=== PATIENT | male | born 1990 ===

== ENCOUNTER 2020-04-19 10:35 | Outpatient (REF) | payer OTHER, SELFPAY | END 2020-04-19 10:36 | disposition home or self-care (01) | LOC: HO.LAB 10:35 | PROVIDERS: Visit Provider Internal Medicine | DX: Z20.828 Contact with and (suspected) exposure to other viral communicable diseases (principal) | CPT/HCPCS: C9803; U0003 ==

== ENCOUNTER 2020-09-13 15:18 | Outpatient (REF) | payer OTHER, SELFPAY | END 2020-09-13 15:19 | disposition home or self-care (01) | LOC: HO.LAB 15:18 | PROVIDERS: Visit Provider Internal Medicine | DX: Z20.822 Contact with and (suspected) exposure to COVID-19 (principal) | CPT/HCPCS: C9803; U0003; U0005 ==

== ENCOUNTER 2020-10-01 08:20 | Outpatient (REF) | payer OTHER, SELFPAY ==
[2020-10-01 08:40] LABS: COVID-19 Test Negative (Negative)
== END 2020-10-01 08:21 | disposition home or self-care (01) ==
LOC: HO.LAB 08:20
PROVIDERS: Visit Provider Internal Medicine
DX: Z20.822 Contact with and (suspected) exposure to COVID-19 (principal)
CPT/HCPCS: 36415; 87635; C9803

== ENCOUNTER 2020-11-09 13:01 | Outpatient (REF) | payer OTHER, SELFPAY | END 2020-11-09 13:02 | disposition home or self-care (01) | LOC: HO.LAB 13:01 | PROVIDERS: Visit Provider Internal Medicine | DX: Z20.822 Contact with and (suspected) exposure to COVID-19 (principal) | CPT/HCPCS: C9803; U0003; U0005 ==

== ENCOUNTER 2021-05-05 18:36 | Emergency (ER) | payer OTHER, SELFPAY ==
[2021-05-05 22:05] VITALS: BP 116/89; PULSE 95; RESP 20; TEMP 36.8; O2SAT 98; BMI 25.8
[2021-05-05 22:37] LABS: COVID-19 Test Positive (Negative)
--- NOTE | 2021-05-06 01:27 | ED_ITS ---
HPI - General Adult General Chief complaint: General Medical Stated complaint: Flu like Time Seen by Provider: 05/06/21 01:26 Source: patient Mode of arrival: ambulatory Limitations: no limitations History of Present Illness HPI narrative: 31-year-old male is not vaccinated for COVID presents for 3 days of body aches, nausea, dry cough, dyspnea on exertion, chills. No fevers today, patient had a fever yesterday. He has had diarrhea. No vomiting, no abdominal pain. Related Data Previous Rx's Medication Instructions Recorded ondansetron 4 mg disintegrating 4 mg PO Q8H #9 tab 05/06/21 tablet Allergies Allergy/AdvReac Type Severity Reaction Status Date / Time No Known Allergies Allergy Unverified 02/02/20 18:44 Review of Systems Constitutional: Constitutional: Reports body ache(s), Reports chills, Reports fatigue, Reports fever(s), Reports headache(s), Reports malaise and Denies weakness Eyes: Eyes: Denies diplopia ENT: Denies vertigo, Denies dizziness, Reports otalgia, Reports headache(s), Denies mouth pain, Denies post nasal drip, Denies sinus pain, Denies sinus pressure, Denies sore throat and Denies throat swelling Cardiovascular: Cardiovascular: Denies chest pain, Denies syncope, Denies leg edema, Denies lightheadedness, Denies Loss of Consciousness, Denies palpitations and Denies dyspnea Respiratory: Respiratory: Denies chest congestion, Reports cough and Denies dyspnea Gastrointestinal: Gastrointestinal: Denies abdominal pain, Denies hematochezia, Denies constipation, Reports diarrhea, Reports nausea and Denies vomiting Musculoskeletal: Musculoskeletal: Reports no additional musculoskeletal complaints Neurologic: Denies confusion, Denies vertigo, Denies dizziness, Denies syncope, Reports headache(s) and Denies weakness Psychiatric: Psychiatric: Denies anxiety, Denies confusion and Denies dep ression Endocrine: Endocrine: Reports fatigue and Denies palpitations Allergic/Immunologic: Allergic/Immunologic: Denies throat swelling [facility] Social History Social History Advance Directives: No Advance Directives Information Provided: Yes Physical Exam Vital Signs: Vital Signs: Last Vital Signs Temp 98.3 F 05/05/21 22:05 Pulse 95 05/05/21 22:05 Resp 20 05/05/21 22:05 BP 116/89 05/05/21 22:05 Pulse Ox 98 05/05/21 22:05 BMI result Body Mass Index 25.8 Const: General: No confusion Nutritional Appearance: well nourished Orientation/consciousness: No confusion Limitations: no limitations HENMT: Head: Yes normal to inspection, Yes normocephalic and Yes atraumatic Ears: hearing grossly normal bilaterally, external ears normal, TM's normal bilaterally and EAC's normal General nose exam: Normal external nose present Face and sinus: Yes normal facial exam and Yes sinuses nontender Mouth: Normal oral and palatal mucosa present and mucous membranes dry Throat: Yes posterior oropharynx abnormal (erythematous) Eyes: Conjunctivae: conjunctivae normal Pupils: Equal, round and reactive pupils present EOM: EOMs intact bilaterally Neck: Neck: Yes full ROM, Yes no lymphadenopathy and Yes supple Resp: Effort & Inspection: normal respiratory effort and able to speak in complete sentences Auscultation: no crackles, no rales, rhonchi right lower and no wheezes Cardio: Rate: regular rate Rhythm: regular rhythm Heart sounds: S1 normal heart sound present and S2 normal heart sound present GI: Inspection: Yes normal to inspection Palpation (GI): Soft to palpation, nontender, no guarding and not rigid Percussion: Yes normal to percussion Auscultation: normal bowel sounds Skin: General skin exam: no rashes or lesions noted Neuro: General: No confusion Cranial nerves: Yes Equal, round and reactive pupils present Extrem: General: Yes normal to inspection and Yes full ROM Psych: Appearance: grossly normal Affect: normal affect Attitude: cooperative Thought process: Normal thought process present Course Course Course Narrative: 31-year-old male who has tested positive for COVID-19 today, with 3 days of symptoms including fever, dry cough, body ache, nausea, diarrhea. On exam, patient is mildly ill appearing, has mild rhonchi left lower lobe, dry mucous membranes, erythematous posterior oropharynx. Gave albuterol inhaler, Zofran, counseled patient to eat use both in the course of his illness, counseled patient to drink plenty of fluids, quarantine at home, quarantine for 10 days, and to take ibuprofen as needed Counseled patient he could buy a pulse oximeter, and have his oxygen saturation dipped below 90%, he could return to be seen, or that he needs rate turn to be seen if he has shortness of breath or worsening symptoms. All questions answered to patient's satisfaction Medical Decision Making Lab Data Labs: Lab Results 05/05/21 Range/Units 22:14 COVID-19 (PHONG) Positive A (Negative) COVID-19 Clin Com See Note Discharge Plan Discharge Clinical Impression: COVID-19 Patient Disposition: Home, Self-Care Instructions: COVID-19 (Coronavirus Disease 2019) (ED) Additional Instructions: You have tested positive for COVID today. He may not return to work for 10 days. You are contagious, please quarantine at home. Please stay away from your family, taking males in a room and use room bathroom, where mask in the house, wash her hands. You may buy a pulse oximeter, if your oxygen saturation drops below 90%, please return to be seen. If you are short of breath please return to the scene. Please use your albuterol inhaler, 2 puffs every 4 hours for the next week while you are awake. Please use the ondansetron 1 pill every 8 hours for nausea. Your mildly dehydrated right now, please drink plenty of fluids, drink 3 L of water a day. Please take ibuprofen for your fever and body aches. Prescriptions: New ondansetron 4 mg tablet,disintegrating 4 mg PO Q8H Qty: 9 RF: 0 Stand Alone Forms: Work/School Release
[2021-05-06] MEDS: Albuterol Sulfate 90 MCG 8 GM INHALER 2 PUFF INHALE (02:01)
== END 2021-05-06 03:33 | disposition home or self-care (01) ==
PROVIDERS: Emergency Provider Emergency Medicine
DX: U07.1 COVID-19 (principal); R06.02 Shortness of breath
CPT/HCPCS: 36415; 87635; 99283; 99284

== ENCOUNTER 2021-10-16 19:13 | Emergency (ER) | payer SELFPAY ==
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
[2021-10-16 19:48] VITALS: BP 115/63; PULSE 75; RESP 18; TEMP 37; O2SAT 96; BMI 27.3
[2021-10-16 20:52] VITALS: BP 124/73; PULSE 76; RESP 20; TEMP 36.7; O2SAT 95
[2021-10-16] MEDS: Ketorolac Tromethamine 60 MG/2 ML VIAL IM (21:05)
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
== END 2021-10-16 22:47 | disposition home or self-care (01) ==
PROVIDERS: Emergency Provider Emergency Medicine
DX: S39.012A Strain of muscle, fascia and tendon of lower back, initial encounter (principal); V89.2XXA Person injured in unspecified motor-vehicle accident, traffic, initial encounter; Y93.9 Activity, unspecified; Y92.410 Unspecified street and highway as the place of occurrence of the external cause; Y99.9 Unspecified external cause status
CPT/HCPCS: 72100; 96372; 99283; 99284; J1885

== ENCOUNTER 2023-07-19 18:05 | Emergency (ER) | payer SELFPAY ==
--- NOTE | ~2023-07-19 | XR_ITS ---
EXAMINATION: XR CHEST CLINICAL INFORMATION: Shortness of breath COMPARISON: 10/17/19 TECHNIQUE: Frontal portable view of the chest was obtained. FINDINGS: Devices overlie the patient. The mediastinum, ailin, and vasculature are within normal limits. There is hypoinflation. No dense focal pneumonia. No pleural fluid or pneumothorax. Area of sclerosis superimposes over the right humeral head unchanged. This does not require any specific follow-up XR/XR chest 1V IMPRESSION: Hypoinflation. No focal pneumonia.
--- NOTE | ~2023-07-19 | CT_ITS ---
CT HEAD WITHOUT IV CONTRAST CT CERVICAL SPINE WITHOUT IV CONTRAST INDICATION: Pain. COMPARISON: None available. TECHNIQUE: Multidetector CT acquisitions of the head and cervical spine were obtained without IV contrast. Multiplanar reformats were acquired and utilized for image interpretation. This CT examination was performed using dose optimization techniques as appropriate, variously including the following: *Automated exposure control *Adjustment of mA and/or kV according to patient size (this includes techniques or standardized protocols for targeted exams where dose is matched to indication/reason for exam; i.e. extremities or head) *Use of iterative reconstruction technique FINDINGS: HEAD: There is no intracranial hemorrhage, hydrocephalus, extra-axial surface collection, midline shift, or other herniation pattern. [place] to white matter differentiation is diffusely maintained without evidence of an evolved acute territorial infarct. The basilar cisterns are preserved. No significant soft tissue abnormality. No acute osseous abnormality. There is moderate mucosal thickening within the left maxillary sinus. There is a defect involving the cartilaginous nasal septum and there is nonspecific soft tissue along the periphery of the left nasal cavity that can be correlated with direct visual inspection. CERVICAL SPINE: Cervical alignment is normal. The vertebral body heights are maintained. The disc volumes are preserved. There are no acute fractures and there are no acute subluxations. Craniocervical junction is unremarkable. No significant soft tissue abnormality within the neck. The visualized lung apices are clear. CT/CT cervical spine wo IV con IMPRESSION: - No acute intracranial abnormality. - No acute osseous abnormality within the cervical spine. - There is moderate mucosal thickening within the left maxillary sinus. There is a defect involving the cartilaginous nasal septum and there is nonspecific soft tissue along the periphery of the left nasal cavity that can be correlated with direct visual inspection to exclude an underlying infectious/inflammatory process.
--- NOTE | 2023-07-19 18:15 | ECG_ITS ---
Test Reason : CHEST PAIN Blood Pressure : / mmHG Vent. Rate : 090 BPM Atrial Rate : 090 BPM P-R Int : 146 ms QRS Dur : 084 ms QT Int : 390 ms P-R-T Axes : 046 046 018 degrees QTc Int : 477 ms Normal sinus rhythm Normal ECG When compared with ECG of 17-OCT-2019 13:36, Nonspecific T wave abnormality now evident in Lateral leads QT has lengthened Referred By: Generic ED Physician Electronically Signed By:Fernando Omalley
[2023-07-19 18:16] VITALS: BP 138/87; PULSE 87; O2SAT 99
[2023-07-19 18:24] VITALS: BP 130/94; PULSE 92; RESP 14; TEMP 36.3; O2SAT 97; BMI 28.2
[2023-07-19 18:48] LABS: MANUAL DIFF FLAG NO
[2023-07-19 18:49] LABS: Basophils Percent Auto 0.3 % (0-2); Eosinophils Absolute Auto 0.2 X10*3/uL (0.0-0.4); Eosinophils Percent Auto 2.1 % (0-4); Hematocrit 43.2 % (42.0-52.0); Hemoglobin 14.4 g/dl (14.0-18.0); Imm Gran Abs Auto 0.03 X10*3/uL (0.00-0.03); Imm Gran Pct Auto 0.3 % (0.0-0.4); Lymphocytes Absolute Auto 3.2 X10*3/uL (1.2-4.9); Lymphocytes Percent Auto 28.8 % (20-40); Mean Corpuscular HGB Conc 33.3 g/dl (31.0-36.0); Mean Corpuscular Hemoglobin 28.9 pg (27.0-33.0); Mean Corpuscular Volume 86.6 fL (80.0-98.0); Monocytes Absolute Auto 0.9 X10*3/uL (0.1-1.2); Monocytes Percent Auto 8.2 % (2-11); Neutrophils Absolute Auto 6.6 x10*3/uL (2.0-8.3); Neutrophils Percent Auto 60.3 % (45-73); Platelet Count 425 X10*3/uL (160-400); Red Blood Count 4.99 X10*6/uL (4.60-5.80); Red Cell Distribution Width 13.9 % (11.0-16.0)
[2023-07-19 18:54] LABS: INTERNATIONAL NORM RATIO 1.1 (0.9-1.1); Prothrombin Time 12.9 SEC (11.1-13.3)
[2023-07-19 19:05] LABS: D Dimer High Sensitivity < 150 NG/ML
--- NOTE | 2023-07-19 19:14 | ED.CHESTPAIN ---
HPI - Chest Pain General Chief Complaint: Chest Pain Stated Complaint: SYNCOPAL EPISODE FOLLOWED WITH CHEST PAIN Time Seen by Provider: 07/19/23 18:30 Source: patient, RN notes reviewed and old records reviewed Mode of arrival: EMS Limitations: no limitations History of Present Illness HPI narrative: 33-year-old male presents for evaluation a syncopal episode. Patient was complaining of chest pain then a syncopal episode by girlfriend Per EMS the patient was in a panic complaining of chest pain. The patient admits to using cocaine today He denies any medical issues He endorses drinking alcohol last night Endorses a dry mouth and states that he was having trouble breathing No other complaints or concerns at time The patient arrives via EMS in his C-collar Related Data Previous Rx's Medication Instructions Recorded ondansetron 4 mg disintegrating 4 mg PO Q8H #9 tabs 05/06/21 tablet cyclobenzaprine 10 mg tablet 10 mg PO TID PRN muscle spasm #14 10/16/21 tabs ibuprofen 800 mg tablet 800 mg PO Q6H PRN pain #20 tabs 10/16/21 amoxicillin 875 mg-potassium 1 tab PO Q12H 10 days #20 tabs 07/19/23 clavulanate 125 mg tablet Allergies Allergy/AdvReac Type Severity Reaction Status Date / Time No Known Allergies Allergy Unverified 02/02/20 18:44 Review of Systems Constitutional: Constitutional: Denies body ache(s), Denies fatigue, Denies fever(s) and Denies headache(s) Eyes: Eyes: Denies blurry vision ENT: Denies headache(s) Cardiovascular: Cardiovascular: Reports chest pain, Reports syncope and Reports dyspnea Respiratory: Respiratory: Denies cough and Reports dyspnea Gastrointestinal: Gastrointestinal: Denies abdominal pain, Denies nausea and Denies vomiting Musculoskeletal: Musculoskeletal: Denies back pain Integumentary/Breasts: Skin/Breast: Denies rash Neurologic: Reports syncope and Denies headache(s) Endocrine: Endocrine: Denies fatigue [facility] Social History Social History Alcohol intake: current Smoked in Last 30 Days: Yes Substance Use Type: Crack/Cocaine Substance Use Frequency: Occasionally Advance Directives: No Advance Directives Information Provided: No Physical Exam Vital Signs: Vital Signs: Last Vital Signs Temp 98 F 07/19/23 20:00 Pulse 90 07/19/23 19:57 Resp 19 07/19/23 19:57 BP 114/83 07/19/23 19:57 Pulse Ox 98 07/19/23 19:57 O2 Del Method Room Air 07/19/23 19:57 BMI result Body Mass Index 28.2 Const: General: healthy appearing, comfortable, no acute distress, alert and awake Nutritional Appearance: well nourished Orientation/consciousness: patient oriented x3 HEENT: Head: Yes normocephalic and Yes atraumatic Eyes: Eyelids: Yes eyelids normal Conjunctivae: conjunctivae normal Sclerae: sclerae normal Corneas: corneas normal Pupils: Equal, round and reactive pupils present EOM: EOMs intact bilaterally Resp: Effort & Inspection: normal respiratory effort, able to speak in complete sentences, no audible wheezes and not labored Auscultation: clear to auscultation bilaterally Cardio: Rate: regular rate Rhythm: regular rhythm GI: Inspection: No distended Palpation (GI): Soft to palpation, not firm, nontender, no guarding and not rigid Back/Spine/Pelvis: Cervical Spine: collar present and Cervical spine tenderness Skin: General skin exam: elasticity normal Neuro: General: patient oriented x3 Cranial nerves: Yes CN's II-XII intact bilaterally, Yes Equal, round and reactive pupils present and Yes Bilaterally intact EOM present Cognition (Neuro): normal cognition Course Reevaluation(s) Reevaluation #1: Initial troponin undetectable, patient's CT imaging shows no traumatic injuries. He had a negative D-dimer which makes PE less likely. Plan to repeat troponin as the patient did use cocaine high syncopal episode chest pain. However I feel that his symptoms were most likely related to anxiety Reevaluation #2: Patient's 2nd troponin negative. Head CT shows sinusitis. Patient will be discharged with Augmentin. Patient informed to follow-up with primary care provider. Patient explained worrisome signs. 10:30pm Medications Administered Discontinued Medications Generic Name Dose Route Start Last Admin Trade Name Freq PRN Reason Stop Dose Admin Potassium Chloride 40 meq 07/19/23 19:39 07/19/23 19:58 Potassium Chloride Er 20 Meq Tab.Er.Prt PO 07/19/23 19:40 40 meq ONCE ONE Administration Medical Decision Making Medical Decision Making MDM Narrative: 33-year-old male presents for evaluation of a syncopal episode as well as chest pain. He arrives in a C-collar. Plan for CT imaging of the brain and C-spine given a syncopal episode and fall. Will also get a chest x-ray, EKG, lab for cardiac workup. Clinically, is likely the patient had a panic attack leading to a syncopal episode. Although he also endorses cocaine abuse drug screen was ordered. Given the chest pain started shortly prior to arrival he will likely require a 3 hour, delta troponin level Differential Diagnosis Differential Diagnoses: The differential diagnosis associated with the presentation includes Syncope Chest pain PE less likely Substance abuse Anxiety Admission/Observation Consideration of admission/observation: Escalation of care including admission/observation considered Patient complaining of chest pain and syncope, he ruled out for ACS as well as P Lab Data [facility] Lab Attestation statement: I reviewed the patient's lab results. Mild leukocytosis to 11.0 K. no significant anemia, patient's sodium is normal at 140 with a slightly low potassium of 3.1. This was repleted orally 07/19/23 18:42 07/19/23 18:42 Labs: Lab Results 07/19/23 07/19/23 07/19/23 Range/Units 18:42 20:02 21:26 WBC 11.0 H (4.8-10.8) X10*3/uL RBC 4.99 (4.60-5.80) X10*6/uL Hgb 14.4 (14.0-18.0) g/dl Hct 43.2 (42.0-52.0) % MCV 86.6 (80.0-98.0) fL MCH 28.9 (27.0-33.0) pg MCHC 33.3 (31.0-36.0) g/dl RDW 13.9 (11.0-16.0) % Plt Count 425 H (160-400) X10*3/uL MPV 10.0 (9.4-12.4) fL Immature Gran % (Auto) 0.3 (0.0-0.4) % Neut % (Auto) 60.3 (45-73) % Lymph % (Auto) 28.8 (20-40) % [place] % (Auto) 8.2 (2-11) % Eos % (Auto) 2.1 (0-4) % Baso % (Auto) 0.3 (0-2) % Lymph # (Auto) 3.2 (1.2-4.9) X10*3/uL [place] # (Auto) 0.9 (0.1-1.2) X10*3/uL Eos # (Auto) 0.2 (0.0-0.4) X10*3/uL Baso # (Auto) 0.0 (0.0-0.2) X10*3/uL Abs Immat Gran (auto) 0.03 (0.00-0.03) X10*3/uL Absolute Neuts (auto) 6.6 (2.0-8.3) x10*3/uL Absolute Nucleated RBC 0.000 (0.0-0.012) X10*3/uL Nucleated RBC % (auto) 0.0 (0.0-0.2) /100WBC PT 12.9 (11.1-13.3) SEC INR 1.1 (0.9-1.1) D-Dimer High Sensitivty < 150 NG/ML Sodium 140 (135-145) mmol/L Potassium 3.1 L (3.3-5.1) mmol/L Chloride 104 (96-108) mmol/L Carbon Dioxide 26 (22-29) mmol/L Anion Gap 13 (12-20) BUN 3 L (9-16) mg/dL Creatinine 0.70 (0.5-1.4) mg/dL Estim Creat Clear Calc 152.0 Estimated GFR > 60 Random Glucose 110 (60-115) mg/dL Calcium 9.7 (8.4-10.2) mg/dL Total Bilirubin 0.9 (0.0-1.0) mg/dL AST 15 (5-37) U/L ALT 18 (0-40) U/L Alkaline Phosphatase 102 (39-117) U/L Troponin I High Sens < 2.7 < 2.7 (<3.5-35.0) ng/L Total Protein 7.7 (6.5-8.0) g/dL Albumin 4.2 (3.5-5.0) g/dL Urine Opiates Screen Not Detected (Not Detect) Urine Fentanyl Screen Not Detected (Not Detect) Ur Barbiturates Screen Not Detected (Not Detect) Ur Phencyclidine Scrn Not Detected (Not Detect) Ur Amphetamines Screen Not Detected (Not Detect) U Benzodiazepines Scrn Not Detected (Not Detect) Urine Cocaine Screen POSITIVE H (Not Detect) U Marijuana (THC) Screen POSITIVE H (Not Detect) Ethyl Alcohol < 10 mg/dL Independent Interpretation I performed an independent interpretation of an: EKG (Sinus rhythm rate 90 beats per minute. No ST segment elevation AR) and Plain X-Ray (No pneumothorax or pneumonia) Radiology Impression Discussion of test interpretation with radiology: I have reviewed the radiologist's reading. (No evidence of cervical spine fracture or intracranial hemorrhage) Discharge Plan Discharge Clinical Impression: Chest pain, Syncope, Acute hypokalemia, Sinusitis Patient Disposition: Home, Self-Care Instructions: Chest Pain (ED), Sinusitis (ED), Syncope (ED) Additional Instructions: Your workup in the ER today was positive. Your imaging did not show any evidence of traumatic injuries Your blood work was reassuring except that your potassium was slightly low today You should have these labs rechecked within 2 weeks Avoid recreational drug use Follow-up with your primary doctor Prescriptions: New amoxicillin-pot clavulanate 875-125 mg tablet 1 tab PO Q12H 10 Days Qty: 20 0RF No Action cyclobenzaprine 10 mg tablet 10 mg PO TID PRN (Reason: muscle spasm) Qty: 14 0RF ibuprofen 800 mg tablet 800 mg PO Q6H PRN (Reason: pain) Qty: 20 0RF ondansetron 4 mg tablet,disintegrating 4 mg PO Q8H Qty: 9 0RF Stand Alone Forms: Work/School Release Interventions: ED Discharge Assessment Last Done: 07/19/23 22:57 Discharge Date/Time: 07/19/23 22:57 Print Language: Marshallese
[2023-07-19 19:17] LABS: Alanine Aminotransferase 18 U/L (0-40); Albumin Level 4.2 g/dL (3.5-5.0); Alkaline Phosphatase 102 U/L (39-117); Anion Gap 13 (12-20); Aspartate Amino Transferase 15 U/L (5-37); Bilirubin Total 0.9 mg/dL (0.0-1.0); Blood Urea Nitrogen 3 mg/dL (9-16); Calcium 9.7 mg/dL (8.4-10.2); Carbon Dioxide 26 mmol/L (22-29); Chloride 104 mmol/L (96-108); Estimated Glomerular Filt Rate > 60; Glucose Random 110 mg/dL (60-115); Potassium 3.1 mmol/L (3.3-5.1); Sodium 140 mmol/L (135-145); Total Protein 7.7 g/dL (6.5-8.0)
[2023-07-19 19:29] LABS: Troponin-I High Sensitivity < 2.7 ng/L (<3.5-35.0)
[2023-07-19 19:57] VITALS: BP 114/83; PULSE 90; RESP 19; O2SAT 98
[2023-07-19] MEDS: Potassium Chloride ER 20 MEQ TAB.ER.PRT 40 MEQ PO (19:58)
[2023-07-19 20:00] VITALS: PULSE 90; TEMP 36.6
[2023-07-19 20:17] LABS: Amphetamine Screen Urine Not Detected (Not Detect); Barbiturates, Urine Not Detected (Not Detect); Benzodiazepines Screen Urine Not Detected (Not Detect); Cannabinoid Screen Urine POSITIVE (Not Detect); Cocaine Screen Urine POSITIVE (Not Detect); Fentanyl, urine Not Detected (Not Detect); Opiate Screen Urine Not Detected (Not Detect); Phencyclidine Screen Urine Not Detected (Not Detect)
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
[2023-07-19 21:47] LABS: Ethanol < 10 mg/dL
[2023-07-19 21:57] LABS: Troponin-I High Sensitivity < 2.7 ng/L (<3.5-35.0)
== END 2023-07-19 22:57 | disposition home or self-care (01) ==
PROVIDERS: Physician Assistant; Emergency Provider Internal Medicine
DX: R07.89 Other chest pain (principal); J32.9 Chronic sinusitis, unspecified; R55 Syncope and collapse; E87.6 Hypokalemia; M54.2 Cervicalgia; R51.9 Headache, unspecified; F41.0 Panic disorder [episodic paroxysmal anxiety]; Z79.899 Other long term (current) drug therapy
CPT/HCPCS: 36415; 70450; 71045; 72125; 80053; 80307; 84484; 85025; 85379; 85610; 93005; 99284; 99285

== ENCOUNTER → 2023-07-19 18:15 | Outpatient (BNV) | payer SELFPAY | PROVIDERS: Emergency Provider Internal Medicine; Visit Provider Internal Medicine Cardiovascular Disease | DX: R07.9 Chest pain, unspecified (principal) | CPT/HCPCS: 93010 ==

== ENCOUNTER 2023-09-10 13:10 | Emergency (ER) | payer SELFPAY ==
--- NOTE | 2023-09-10 | ECG_ITS ---
Test Reason : CHEST PAIN Blood Pressure : / mmHG Vent. Rate : 106 BPM Atrial Rate : 106 BPM P-R Int : 134 ms QRS Dur : 082 ms QT Int : 368 ms P-R-T Axes : 032 041 017 degrees QTc Int : 488 ms Sinus tachycardia Otherwise normal ECG When compared with ECG of 19-JUL-2023 18:19, No significant change was found Referred By: Generic ED Physician Electronically Signed By:MISA LORD MD
--- NOTE | ~2023-09-10 | XR_ITS ---
EXAMINATION: XR CHEST CLINICAL INFORMATION: Chest pain COMPARISON: Chest x-ray July 19, 2023 TECHNIQUE: 2 views of the chest were obtained. FINDINGS: Lung volume low. Linear atelectasis at lung bases. There is no focal airspace disease/consolidation. No pleural effusion or pneumothorax. Heart size is normal. Cardiac and mediastinal contours are normal. No acute osseous abnormality. XR/XR chest 2V IMPRESSION: Low lung volume. Linear atelectasis at lung bases.
--- NOTE | 2023-09-10 13:32 | ED_ITS ---
HPI - General Adult General Chief complaint: Chest Pain Stated complaint: Chest pain Related Data Previous Rx's ?Medication ?Instructions ?Recorded ondansetron 4 mg disintegrating 4 mg PO Q8H #9 tabs 05/06/21 tablet cyclobenzaprine 10 mg tablet 10 mg PO TID PRN muscle spasm #14 10/16/21 tabs ibuprofen 800 mg tablet 800 mg PO Q6H PRN pain #20 tabs 10/16/21 amoxicillin 875 mg-potassium 1 tab PO Q12H 10 days #20 tabs 07/19/23 clavulanate 125 mg tablet Allergies Allergy/AdvReac Type Severity Reaction Status Date / Time No Known Allergies Allergy Verified 09/10/23 13:34 [facility] Social History Social History Alcohol intake: current Substance Use Type: Crack/Cocaine Advance Directives: No Advance Directives Information Provided: No Do you have a plan to hurt others: No Plan Physical Exam ED Vital Signs: BMI result Body Mass Index 28.9 Course Course Course Narrative: This is a rapid medical exam: Additional HPI, ROS, PE not included below will be deferred to primary provider. Patient is a 33-year-old male presenting to the emergency department with complaint of intermittent chest pain for the past 3 days as well as hands and feet sweating. States last time he felt this way he was hypokalemic. Plan: EKG, labs, CXR, viral swabs Medical Decision Making Lab Data 09/10/23 13:52 09/10/23 13:52 Labs: Lab Results 09/10/23 Range/Units 13:52 WBC 10.7 (4.8-10.8) X10*3/uL RBC 4.96 (4.60-5.80) X10*6/uL Hgb 14.4 (14.0-18.0) g/dl Hct 44.2 (42.0-52.0) % MCV 89.1 (80.0-98.0) fL MCH 29.0 (27.0-33.0) pg MCHC 32.6 (31.0-36.0) g/dl RDW 13.8 (11.0-16.0) % Plt Count 457 H (160-400) X10*3/uL MPV 10.2 (9.4-12.4) fL Immature Gran % (Auto) 0.4 (0.0-0.4) % Neut % (Auto) 64.5 (45-73) % Lymph % (Auto) 24.6 (20-40) % Tompkins % (Auto) 8.8 (2-11) % Eos % (Auto) 1.4 (0-4) % Baso % (Auto) 0.3 (0-2) % Lymph # (Auto) 2.6 (1.2-4.9) X10*3/uL Tompkins # (Auto) 0.9 (0.1-1.2) X10*3/uL Eos # (Auto) 0.2 (0.0-0.4) X10*3/uL Baso # (Auto) 0.0 (0.0-0.2) X10*3/uL Abs Immat Gran (auto) 0.04 H (0.00-0.03) X10*3/uL Absolute Neuts (auto) 6.9 (2.0-8.3) x10*3/uL Absolute Nucleated RBC 0.000 (0.0-0.012) X10*3/uL Nucleated RBC % (auto) 0.0 (0.0-0.2) /100WBC Sodium 139 (135-145) mmol/L Potassium 4.1 D (3.3-5.1) mmol/L Chloride 103 (96-108) mmol/L Carbon Dioxide 30 H (22-29) mmol/L Anion Gap 10 L (12-20) BUN 4 L (9-16) mg/dL Creatinine 0.70 (0.5-1.4) mg/dL Estim Creat Clear Calc 148.8 Estimated GFR > 60 Random Glucose 102 (60-115) mg/dL Calcium 9.8 (8.4-10.2) mg/dL Total Bilirubin 0.8 (0.0-1.0) mg/dL AST 16 (5-37) U/L ALT 23 (0-40) U/L Alkaline Phosphatase 108 (39-117) U/L Troponin I High Sens < 2.7 (<3.5-35.0) ng/L Total Protein 8.3 H (6.5-8.0) g/dL Albumin 4.5 (3.5-5.0) g/dL Influenza Type A (PCR) NEGATIVE (Negative) Influenza Type B (PCR) NEGATIVE (Negative) RSV RNA Qual (PCR) NEGATIVE (Negative) SARS-CoV-2 RNA (RT-PCR) NEGATIVE (Negative) Discharge Plan Discharge Clinical Impression: Chest pain Patient Disposition: Left W/O Completing Treatment Prescriptions: No Action cyclobenzaprine 10 mg tablet 10 mg PO TID PRN (Reason: muscle spasm) Qty: 14 0RF ibuprofen 800 mg tablet 800 mg PO Q6H PRN (Reason: pain) Qty: 20 0RF ondansetron 4 mg tablet,disintegrating 4 mg PO Q8H Qty: 9 0RF amoxicillin-pot clavulanate 875-125 mg tablet 1 tab PO Q12H 10 Days Qty: 20 0RF Discharge Date/Time: 09/10/23 20:43
[2023-09-10 13:33] VITALS: BP 138/89; PULSE 97; RESP 18; TEMP 36.7; O2SAT 97; BMI 28.9
[2023-09-10 13:58] LABS: MANUAL DIFF FLAG NO
[2023-09-10 14:15] LABS: Basophils Percent Auto 0.3 % (0-2); Eosinophils Absolute Auto 0.2 X10*3/uL (0.0-0.4); Eosinophils Percent Auto 1.4 % (0-4); Hematocrit 44.2 % (42.0-52.0); Hemoglobin 14.4 g/dl (14.0-18.0); Imm Gran Abs Auto 0.04 X10*3/uL (0.00-0.03); Imm Gran Pct Auto 0.4 % (0.0-0.4); Lymphocytes Absolute Auto 2.6 X10*3/uL (1.2-4.9); Lymphocytes Percent Auto 24.6 % (20-40); Mean Corpuscular HGB Conc 32.6 g/dl (31.0-36.0); Mean Corpuscular Volume 89.1 fL (80.0-98.0); Mean Platelet Volume 10.2 fL (9.4-12.4); Monocytes Absolute Auto 0.9 X10*3/uL (0.1-1.2); Monocytes Percent Auto 8.8 % (2-11); Neutrophils Absolute Auto 6.9 x10*3/uL (2.0-8.3); Neutrophils Percent Auto 64.5 % (45-73); Platelet Count 457 X10*3/uL (160-400); Red Blood Count 4.96 X10*6/uL (4.60-5.80); Red Cell Distribution Width 13.8 % (11.0-16.0); White Blood Count 10.7 X10*3/uL (4.8-10.8)
[2023-09-10 14:19] LABS: Alanine Aminotransferase 23 U/L (0-40); Albumin Level 4.5 g/dL (3.5-5.0); Alkaline Phosphatase 108 U/L (39-117); Anion Gap 10 (12-20); Aspartate Amino Transferase 16 U/L (5-37); Bilirubin Total 0.8 mg/dL (0.0-1.0); Blood Urea Nitrogen 4 mg/dL (9-16); Calcium 9.8 mg/dL (8.4-10.2); Carbon Dioxide 30 mmol/L (22-29); Chloride 103 mmol/L (96-108); Creatinine Clr Calc Pharmacy 148.8; Estimated Glomerular Filt Rate > 60; Glucose Random 102 mg/dL (60-115); Potassium 4.1 mmol/L (3.3-5.1); Sodium 139 mmol/L (135-145); Total Protein 8.3 g/dL (6.5-8.0)
[2023-09-10 14:25] LABS: Troponin-I High Sensitivity < 2.7 ng/L (<3.5-35.0)
[2023-09-10 14:39] LABS: Influenza A PCR NEGATIVE (Negative); Influenza B PCR NEGATIVE (Negative); Resp Syncy Virus RNA Qual PCR NEGATIVE (Negative); SARS COV2 PCR INHOUSE NEGATIVE (Negative)
== END 2023-09-10 20:43 | disposition left against medical advice (07) ==
LOC: HO.ED 20:39
PROVIDERS: Registered Nurse Emergency; Emergency Provider Emergency Medicine
DX: R07.89 Other chest pain (principal); F14.90 Cocaine use, unspecified, uncomplicated; Z03.818 Encounter for observation for suspected exposure to other biological agents ruled out; Z79.899 Other long term (current) drug therapy
CPT/HCPCS: 0241U; 71046; 80053; 84484; 85025; 93005; 99283

== ENCOUNTER → 2023-09-10 13:12 | Outpatient (BNV) | payer SELFPAY | PROVIDERS: Visit Provider Internal Medicine Cardiovascular Disease | DX: R00.0 Tachycardia, unspecified (principal) | CPT/HCPCS: 93010 ==

== ENCOUNTER 2025-04-01 21:29 | Emergency (ER) | payer MEDICAID, SELFPAY ==
[2025-04-01 21:35] VITALS: BP 103/68; BP 128/65; PULSE 81; PULSE 88; RESP 15; TEMP 36.9; O2SAT 100; O2SAT 94; BMI 25.1
[2025-04-01 21:39] VITALS: BP 111/65; PULSE 72; RESP 14; TEMP 36.9; O2SAT 96
--- NOTE | 2025-04-01 21:46 | PC.NURSE ---
Assumed care of pt, presents with substance abuse, pt apparently bought cannabis from a friend, and according was unresponsive to family at home, pt is upon arrival pt is responsive to verbal stimuli, but is somnolent, pt was able to aaox4, answers question appropriately
--- NOTE | 2025-04-01 22:18 | ECG_ITS ---
Test Reason : SYNCOPE Blood Pressure : */* mmHG Vent. Rate : 79 BPM Atrial Rate : 79 BPM P-R Int : 142 ms QRS Dur : 88 ms QT Int : 392 ms P-R-T Axes : 56 60 45 degrees QTcB Int : 449 ms Normal sinus rhythm Normal ECG When compared with ECG of 10-Sep-2023 13:12, ST elevation now present in Inferior leads Nonspecific T wave abnormality has replaced inverted T waves in Inferior leads Referred By: Veronica Conway Electronically Signed By: MISA LORD MD
--- NOTE | 2025-04-01 22:24 | ED.GENADULT ---
HPI - General Adult General Chief complaint: ETOH/Substance Use Stated complaint: Weakness, Marijuana use Time Seen by Provider: 04/01/25 22:10 Source: patient Mode of arrival: ambulatory Limitations: no limitations History of Present Illness ED Provider: Dr. Veronica Conway HPI narrative: Patient comes to the emergency room from home. According to the patient, he has smoked marijuana . Patient states that he was sitting and started feeling lightheaded. Patient states that he was able to lower himself to the ground and believes he passed out. Patient states that he does not remember much after feeling lightheaded and blacking out, patient woke up in the emergency room. Patient denies any chest pain or shortness of breath. Patient states that he has had multiple episodes of lightheadedness in the past and near syncopal episodes. Patient denies any history of seizures. Time, patient states that he feels well and has no complaints Related Data Previous Rx's ?Medication ?Instructions ?Recorded ondansetron 4 mg disintegrating 4 mg PO Q8H #9 tabs 05/06/21 tablet cyclobenzaprine 10 mg tablet 10 mg PO TID PRN muscle spasm #14 10/16/21 tabs ibuprofen 800 mg tablet 800 mg PO Q6H PRN pain #20 tabs 10/16/21 amoxicillin 875 mg-potassium 1 tab PO Q12H 10 days #20 tabs 07/19/23 clavulanate 125 mg tablet Allergies Allergy/AdvReac Type Severity Reaction Status Date / Time No Known Allergies Allergy Verified 04/01/25 21:42 Review of Systems Review of Systems: Constitutional : No Weight loss, No Fever, No Chills, No Night Sweats, No Fatigue, No Malaise ENT/Mouth : No Hearing loss, No Ear Pain, No Nasal Congestion, No Sinus Pain, No Hoarseness, No sore throat, No Rhinorrhea, No Swallowing Difficulty Eyes: No Eye Pain, No Swelling, No Redness, No Foreign Body, No Discharge, No Vision Changes Cardiovascular : No Chest Pain, No SOB, No Dyspnea on Exertion, No Orthopnea, No Edema, No Palpitations Respiratory : No Cough, No Sputum, No Wheezing, No Smoke Exposure, No Dyspnea Gastrointestinal : No Nausea, No Vomiting, No Diarrhea, No Constipation, No abdominal Pain, No Hematochezia, No Melena Genitourinary : no irregular bleeding, No Dysuria, No Urinary Frequency, No Hematuria, No Urinary Incontinence, No Urgency, No Flank Pain, No Urinary Flow Changes, No Hesitancy Musculoskeletal : No joint pain, No Myalgias, No Joint Swelling Skin : No Skin Lesions, No rash Neuro : No Weakness, No Numbness, No Paresthesias, complaining of a syncopal episode today after using marijuana, No Dizziness, No Headache Psych : No Anxiety/Panic, No Depression, No SI/HI/AH/VH, No Social Issues, Heme/Lymph: No Bruising, No Bleeding,No Lymphadenopathy Endocrine : No Polyuria, No Polydipsia, No Temperature Intolerance [facility] Social History Social History Unable to assess alcohol history related to: Unable to respond Alcohol intake: current Use of substances other than those prescribed or required for medical reasons: Unable to respond Substance Use Type: Crack/Cocaine Advance Directives: No Advance Directives Information Provided: No Do you have a plan to hurt others: No Plan Physical Exam ED Exam Exam: Appearance: Alert. Oriented X3. No acute distress. Eyes: Pupils equal, round and reactive to light. ENT: Pharynx normal. Neck: Normal inspection. Neck supple. No lymph nodes noted. No crepitus CVS: Normal heart rate and rhythm. Pulses normal. Normal S1 and S2 Respiratory: No respiratory distress. Breath sounds normal. No Wheezing. No rales Abdomen: Soft and nontender. No rigidity. No distention. Skin: Skin warm and dry. Normal skin color. Normal skin turgor. Extremities: No lower extremity edema. No Lacerations. No Rash Neuro: Oriented X 3. No motor deficit. No sensory deficit. Moving all extremities. No slurred speech. CN 2 through 12 grossly intact Psych: calm, cooperative, normal affect Vital Signs: Vital Signs - 24 hr 04/01/25 21:35 04/01/25 21:39 04/01/25 22:41 Temperature 98.5 F 98.5 F Pulse Rate 81 72 82 Respiratory Rate 15 14 Blood Pressure 103/68 111/65 100/61 Pulse Oximetry 94 96 Oxygen Delivery Method Room Air Room Air 04/01/25 22:41 04/01/25 22:42 Temperature Pulse Rate 81 94 Respiratory Rate Blood Pressure 108/74 103/73 Pulse Oximetry Oxygen Delivery Method BMI result Body Mass Index 25.1 Course Course Course Narrative: patient reports smoking weed and then passing out. To patient's knowledge, he got it from a friend, unknown if it was laced with narcotics. Patient states that in the past he has a episodes of near-syncope for unclear reason, probably related to smoking? At this time, patient is asymptomatic all of patient's labs and imaging pending Medical Decision Making Medical Decision Making MDM Narrative: my interpretation of EKG: Normal sinus rhythm, heart rate 79, no ST segment depression or elevation, does not, nonspecific 1 mm elevations in laterally, QTC 49 my interpretation of labs: No significant abnormality patient's hematology and chemistry, D-dimer negative, troponin negative, ETOH negative Orthostatic vitals negative Wells criteria score for pulmonary embolism is 0 U tox positive for marijuana and cocaine I discussed with the patient that he needs to stop using drugs, cocaine, as it may cause arrhythmias. Differential Diagnosis Differential Diagnoses: The differential diagnosis associated with the presentation includes ( accidental overdose, arrhythmias, pulmonary embolism, vasovagal syncope, orthostatic hypotension) Admission/Observation Consideration of admission/observation: Escalation of care including admission/observation considered (Given patient's recurrent symptoms, observation has been considered) Lab Data [facility] Lab Attestation statement: I reviewed the patient's lab results. 04/01/25 22:30 04/01/25 22:30 Labs: Lab Results 04/01/25 04/01/25 Range/Units 22:30 23:32 WBC 9.4 (4.8-10.8) X10*3/uL RBC 5.01 (4.60-5.80) X10*6/uL Hgb 14.3 (14.0-18.0) g/dl Hct 43.7 (42.0-52.0) % MCV 87.2 (80.0-98.0) fL MCH 28.5 (27.0-33.0) pg MCHC 32.7 (31.0-36.0) g/dl RDW 14.4 (11.0-16.0) % Plt Count 400 (160-400) X10*3/uL MPV 10.1 (9.4-12.4) fL Immature Gran % (Auto) 0.3 (0.0-0.4) % Neut % (Auto) 55.1 (45-73) % Lymph % (Auto) 31.4 (20-40) % Shannon % (Auto) 9.4 (2-11) % Eos % (Auto) 3.2 (0-4) % Baso % (Auto) 0.6 (0-2) % Lymph # (Auto) 3.0 (1.2-4.9) X10*3/uL Shannon # (Auto) 0.9 (0.1-1.2) X10*3/uL Eos # (Auto) 0.3 (0.0-0.4) X10*3/uL Baso # (Auto) 0.1 (0.0-0.2) X10*3/uL Abs Immat Gran (auto) 0.03 (0.00-0.03) X10*3/uL Absolute Neuts (auto) 5.2 (2.0-8.3) x10*3/uL Absolute Nucleated RBC 0.000 (0.0-0.012) X10*3/uL Nucleated RBC % (auto) 0.0 (0.0-0.2) /100WBC D-Dimer High Sensitivty < 150 NG/ML Sodium 142 (135-145) mmol/L Potassium 3.8 (3.3-5.1) mmol/L Chloride 107 (96-108) mmol/L Carbon Dioxide 23 (22-29) mmol/L Anion Gap 16 (12-20) BUN 11 (9-16) mg/dL Creatinine 0.88 (0.5-1.4) mg/dL Estim Creat Clear Calc 109.5 Estimated GFR > 60 Random Glucose 93 (60-115) mg/dL Calcium 9.8 (8.4-10.2) mg/dL Total Bilirubin 0.7 (0.0-1.0) mg/dL Direct Bilirubin 0.2 (0.0-0.5) mg/dL AST 24 (5-37) U/L ALT 21 (0-40) U/L Alkaline Phosphatase 105 (39-117) U/L Troponin I High Sens < 2.7 (<3.5-35.0) ng/L Total Protein 7.5 (6.5-8.0) g/dL Albumin 4.1 (3.5-5.0) g/dL Urine Opiates Screen Not Detected (Not Detect) Ur Buprenorphine Scrn Not Detected (Not Detect) ng/mL Ur Oxycodone Screen Not Detected (Not Detect) ng/mL Urine Methadone Screen Not Detected (Not Detect) ng/mL Urine Fentanyl Screen Not Detected (Not Detect) Ur Barbiturates Screen Not Detected (Not Detect) Ur Phencyclidine Scrn Not Detected (Not Detect) Ur Amphetamines Screen Not Detected (Not Detect) U Benzodiazepines Scrn Not Detected (Not Detect) Urine Cocaine Screen POSITIVE H (Not Detect) U Marijuana (THC) Screen POSITIVE H (Not Detect) Ethyl Alcohol < 10 mg/dL Independent Interpretation I performed an independent interpretation of an: EKG Critical Care Time Critical Care Time Critical Care Time: Yes Total Critical Care Time: 35 Attestation: I have personally provided critical care time. Time includes review of lab data, radiology results, discussion with consultants, and monitoring for potential decompensation. Intervention performed as documented. Discharge Plan Discharge Clinical Impression: Syncope, Polysubstance abuse Patient Disposition: Home, Self-Care Instructions: Polysubstance Use Disorder (ED), Syncope (ED) Additional Instructions: Please follow-up with your primary care physician tomorrow. If you have any worsening or new symptoms, please return to the emergency room or call 911 Prescriptions: No Action cyclobenzaprine 10 mg tablet 10 mg PO TID PRN (Reason: muscle spasm) Qty: 14 0RF ibuprofen 800 mg tablet 800 mg PO Q6H PRN (Reason: pain) Qty: 20 0RF ondansetron 4 mg tablet,disintegrating 4 mg PO Q8H Qty: 9 0RF amoxicillin-pot clavulanate 875-125 mg tablet 1 tab PO Q12H 10 Days Qty: 20 0RF Print Language: Macedonian
[2025-04-01 22:35] LABS: MANUAL DIFF FLAG NO
[2025-04-01 22:36] LABS: Hematocrit 43.7 % (42.0-52.0); Hemoglobin 14.3 g/dl (14.0-18.0); Imm Gran Abs Auto 0.03 X10*3/uL (0.00-0.03); Imm Gran Pct Auto 0.3 % (0.0-0.4); Lymphocytes Absolute Auto 3.0 X10*3/uL (1.2-4.9); Mean Corpuscular HGB Conc 32.7 g/dl (31.0-36.0); Mean Corpuscular Hemoglobin 28.5 pg (27.0-33.0); Mean Corpuscular Volume 87.2 fL (80.0-98.0); NRBC Abs Auto 0.000 X10*3/uL (0.0-0.012); NRBC Pct Auto 0.0 /100WBC (0.0-0.2); Platelet Count 400 X10*3/uL (160-400); Red Blood Count 5.01 X10*6/uL (4.60-5.80); White Blood Count 9.4 X10*3/uL (4.8-10.8)
[2025-04-01 22:41] VITALS: BP 100/61; BP 108/74; PULSE 81; PULSE 82
[2025-04-01 22:42] VITALS: BP 103/73; PULSE 94
[2025-04-01 22:44] LABS: D Dimer High Sensitivity < 150 NG/ML
[2025-04-01 22:51] LABS: Alanine Aminotransferase 21 U/L (0-40); Albumin Level 4.1 g/dL (3.5-5.0); Alkaline Phosphatase 105 U/L (39-117); Anion Gap 16 (12-20); Aspartate Amino Transferase 24 U/L (5-37); Blood Urea Nitrogen 11 mg/dL (9-16); Calcium 9.8 mg/dL (8.4-10.2); Carbon Dioxide 23 mmol/L (22-29); Chloride 107 mmol/L (96-108); Creatinine Clr Calc Pharmacy 109.5; Estimated Glomerular Filt Rate > 60; Potassium 3.8 mmol/L (3.3-5.1); Sodium 142 mmol/L (135-145); Total Protein 7.5 g/dL (6.5-8.0)
[2025-04-01 23:00] LABS: Troponin-I High Sensitivity < 2.7 ng/L (<3.5-35.0)
[2025-04-01 23:49] LABS: Cannabinoid Screen Urine POSITIVE (Not Detect)
[2025-04-02 00:59] VITALS: BP 103/75; PULSE 92; RESP 16; TEMP 36.8; O2SAT 97
== END 2025-04-02 01:03 | disposition home or self-care (01) ==
PROVIDERS: Emergency Provider Emergency Medicine
DX: R55 Syncope and collapse (principal); F19.10 Other psychoactive substance abuse, uncomplicated; R53.1 Weakness
CPT/HCPCS: 36415; 80048; 80076; 80307; 84484; 85025; 85379; 93005; 99284; 99285

== ENCOUNTER → 2025-04-01 22:18 | Outpatient (BNV) | payer SELFPAY | PROVIDERS: Emergency Provider Emergency Medicine; Visit Provider Internal Medicine Cardiovascular Disease | DX: I21.29 ST elevation (STEMI) myocardial infarction involving other sites (principal) | CPT/HCPCS: 93010 ==

== ENCOUNTER 2025-05-05 21:41 | Emergency (ER) | payer MEDICAID, SELFPAY ==
--- NOTE | 2025-05-05 | ECG_ITS ---
Test Reason : CP Blood Pressure : */* mmHG Vent. Rate : 101 BPM Atrial Rate : 101 BPM P-R Int : 138 ms QRS Dur : 82 ms QT Int : 374 ms P-R-T Axes : 54 57 41 degrees QTcB Int : 484 ms Sinus tachycardia Otherwise normal ECG When compared with ECG of 01-Apr-2025 22:33, No significant change was found Referred By: Generic ED Physician Electronically Signed By: Fernando Omalley
--- NOTE | ~2025-05-05 | US_ITS ---
CLINICAL HISTORY: intermittent L leg swelling Venous duplex ultrasound left lower extremity Comparison: None provided Findings: The visualized deep veins are fully compressible with normal Doppler color flow and spectral tracings. No popliteal cyst. IMPRESSION: 1. Negative for left lower extremity deep vein thrombosis. This document has been electronically signed by: Arnulfo Mcintosh MD on 05/06/2025 08:58:11
--- NOTE | ~2025-05-05 | CT_ITS ---
CLINICAL HISTORY: Epigastric Pain Tender; Elevated Lipase CT abdomen and pelvis with contrast Comparison: None provided Findings: There is right lower lobe consolidation, possible subsegmental atelectasis versus pneumonia. Unremarkable gallbladder and solid organs. No urolithiasis. No bowel obstruction, pneumoperitoneum, or pneumatosis. Pelvic contents unremarkable. Normal appendix. No acute fracture. IMPRESSION: Right lower lobe consolidation, differential considerations noted This document has been electronically signed by: Arnulfo Mcintosh MD on 05/06/2025 07:02:52
--- NOTE | ~2025-05-05 | XR_ITS ---
CLINICAL HISTORY: cough 2 view chest x-ray Comparison: 09/10/2023 Findings: There are no new areas of airspace or interstitial consolidation. Normal size heart. No acute fracture. IMPRESSION: 1. No acute findings. This document has been electronically signed by: Arnulfo Mcintosh MD on 05/06/2025 08:56:21
[2025-05-05 21:47] VITALS: BP 134/80; PULSE 103; RESP 16; TEMP 36.6; O2SAT 96; BMI 25.7
[2025-05-05 22:11] LABS: MANUAL DIFF FLAG NO
[2025-05-05 22:12] LABS: Hematocrit 41.5 % (42.0-52.0); Hemoglobin 13.8 g/dl (14.0-18.0); Imm Gran Abs Auto 0.03 X10*3/uL (0.00-0.03); Imm Gran Pct Auto 0.3 % (0.0-0.4); Lymphocytes Absolute Auto 2.8 X10*3/uL (1.2-4.9); Mean Corpuscular HGB Conc 33.3 g/dl (31.0-36.0); Mean Corpuscular Hemoglobin 28.6 pg (27.0-33.0); Mean Corpuscular Volume 85.9 fL (80.0-98.0); NRBC Abs Auto 0.000 X10*3/uL (0.0-0.012); NRBC Pct Auto 0.0 /100WBC (0.0-0.2); Platelet Count 401 X10*3/uL (160-400); Red Blood Count 4.83 X10*6/uL (4.60-5.80); White Blood Count 11.4 X10*3/uL (4.8-10.8)
[2025-05-05 22:26] LABS: Alanine Aminotransferase 24 U/L (0-40); Albumin Level 4.5 g/dL (3.5-5.0); Alkaline Phosphatase 109 U/L (39-117); Anion Gap 13 (12-20); Aspartate Amino Transferase 31 U/L (5-37); Blood Urea Nitrogen 5 mg/dL (9-16); Calcium 9.8 mg/dL (8.4-10.2); Carbon Dioxide 26 mmol/L (22-29); Chloride 100 mmol/L (96-108); Creatinine Clr Calc Pharmacy 136.3; Estimated Glomerular Filt Rate > 60; Lipase 191 U/L (8-78); Magnesium 2.0 mg/dL (1.6-2.6); Potassium 4.2 mmol/L (3.3-5.1); Sodium 135 mmol/L (135-145); Total Protein 7.9 g/dL (6.5-8.0)
[2025-05-05 22:49] LABS: Resp Syncy Virus RNA Qual PCR NEGATIVE (Negative); SARS COV2 PCR INHOUSE NEGATIVE (Negative)
--- OUTSIDE RECORDS SUMMARY | 2025-05-05 23:23 | XMS_ITS | Clinical Summary ---
Author Organization [facility] ity Address [address] [place] [address] Care Team Providers Care Commercial Loan Closer Name Role Phone Unavailable Primary Care Provider Unavailabl e Social History Tobacco Use Types Packs/Day Years Used Date Smoking Tobacco: Never Assessed Sex and Gender Information Value Date Recorded Sex Assigned at Not on file Legal Sex Male 11:47 AM EST Gender Identity Not on file Sexual Orientation Not on file Plan of Treatment Health Maintenance Due Date Last Done Comments DTaP,Tdap,and Td Vaccines (1 - Tdap) 2008 Hepatitis B Vaccines (1 of 3 - 19+ 3-dose series) 2008 HPV Vaccines (1 - 3-dose SCD M series) 2016 Depression Screening 05/18/2024 COVID-19 Vaccine (1 - 2024-2 6 season) 2025 Influenza Vaccine (#1) 2025 RSV Immunization Adult Patie nts (1 - 1-dose 75+ series) 2064 HIB Vaccines Aged Out No longer eligi ble based on patient's age to complete this topic Hepatitis A Vaccines Aged Out No long er eligible based on patient's age to complete this topic IPV Vaccines Aged Out No longer eligi ble based on patient's age to complete this topic MMR Vaccines Aged Out No longer eligi ble based on patient's age to complete this topic Meningococcal ACWY Vaccine Aged Out N o longer eligible based on patient's age to complete this topic Meningococcal B Vaccine Aged Out No l onger eligible based on patient's age to complete this topic Pneumococcal Vaccine: Pediat rics (0 to 5 Years) and At-Risk Patients (6 to 49 Years) Aged Out No longer eligible b ased on patient's age to complete this topic RSV Immunization Patients Un nunu 20 months Aged Out No longer eligible b ased on patient's age to complete this topic Varicella Vaccines Aged Out No longer eligible based on patient's age to complete this topic
--- OUTSIDE RECORDS SUMMARY | 2025-05-05 23:23 | XMS_ITS | Clinical Summary ---
Author Organization [employer] Address [address] [place] [address] Care Team Providers Care Student Counsellor Name Role Phone Unavailable Primary Care Provider Unavailabl e Allergies No known active allergies Medications Blood Pressure Monitoring (Blood Pressure Cuff) misc Use daily as prescribed 1 each 5 Active nicotine polacrilex (Nicorette) 4 MG gum Chew 1 each (4 mg) if needed for smoking cessation. 100 each 5 05/24/19 26 Active Active Problems Problem Noted Date Diagnosed Date Tetrahydrocannabinol (THC) u se disorder, moderate, dependence (CMS/HCC) 04/24/2025 Assessment & Plan (04/24/2025 4:02 PM EST): Advised to cut down daily use to off. Refer to power and recovery supervisor Polysubstance abuse 04/24/2025 Assessment & Plan (04/24/2025 4:03 PM EST): Drinks alcohol _ uses cocaine at the same time few times per month+ daily THC Advised to quit, agreed to referral to recovery coaches. Chronic nonintractable headache 04/24/2025 Assessment & Plan (04/24/2025 4:02 PM EST): - It seems to be migraine. - Advised to remain hydrated, avoid recreational substances as above, including alcohol as well. - Advised to use tylenol only and fu w new PCP in 2mo , may need prophylaxis. Vasovagal reaction 04/24/2025 Assessment & Plan (04/24/2025 4:00 PM EST): - Vasovagal episodes likely exacerbated by dehydration, smoking, caffeine, and substance use. No evidence of structural brain pathology or metabolic derangement based on recent normal CT scan and laboratory results. - Advised to quit nicotine, THC, cocaine. He should avoid abrupt cessation of substances to prevent withdrawal, I'll prescription nicotine patch and will refer to recovery coaches. - Recommended home blood pressure monitoring, especially before rising from bed and before sleep. - Advised to maintain adequate hydration with fluids such as water, Pedialyte, Crystal Light, Gatorade, and electrolyte drinks that are not energy drinks. - Advised to avoid dehydration, smoking, and caffeine. - Encouraged regular physical activity (walking at least 15 minutes daily). - - Scheduled follow-up w new PCP in two months. Encounters Date Type Department Care Team Description 04/25/2025 Patient Outreach [facility] [address] [place] [id number] [address] Outreach/No Answer (Called to offer recovery support. Could not LVM.) 04/24/2025 1:00 PM EST Office Visit [facility] [address] [place] [phone] Crystal Shaver MD Vasovagal reaction (Primary Dx); Chronic nonintractable headache, unspecified headache type; Tetrahydrocannabinol (THC) use disorder, moderate, dependence (CMS/HCC) ([facility]); Polysubstance abuse (HCC) 04/24/2025 Travel from Last 3 Months Social History Tobacco Use Types Packs/Day Years Used Date Smoking Tobacco: Every Day Cigarettes Passive Smoke Exposure: Past Tobacco Cessation:Ready to Q uit: Not Asked; Counseling Given: Not Answered Sex and Gender Information Value Date Recorded Sex Assigned at Male 03/17/2022 10:29 AM EDT Legal Sex Male 10:29 AM EDT Gender Identity Male 04/24/2025 11:51 AM EST Sexual Orientation Straight 04/24/2025 11 :51 AM EST Last Filed Vital Signs Vital Sign Reading Time Taken Comments Blood Pressure 120/82 04/24/2025 1:30 PM EST Pulse 86 04/24/2025 1:30 PM EST Temperature 36.7 C (98 F) 04/24/2025 1:11 PM EST Respiratory Rate 16 04/24/2025 1:11 PM EST Oxygen Saturation 98% 04/24/2025 1:11 PM EST Inhaled Oxygen Concentration - - Weight 77.1 kg (170 lb) 04/24/2025 1:11 PM EST Height 170.2 cm (5' 7 ) 04/24/2025 1:11 PM EST Body Mass Index 26.63 04/24/2025 1:11 PM EST Plan of Treatment Upcoming Encounters Date Type Department Care Team (Late st Contact Info) Description 06/13/2025 9:15 AM EST Office Visit [facility] [address] [place] [phone] Crystal Shaver MD [address] [place] [address] Health Maintenance Due Date Last Done Comments Depression Screening 1989 HIV Screening 1989 Lipid Panel 1989 SDOH Screening 1989 Disability Screening 1989 Alcohol/Substance Use Screening 2001 Family Planning (PISQ) 2004 HPV Vaccines (1 - Male 3-dos e series) 2004 Hepatitis C Screening 2007 DTaP/Tdap/Td Vaccines (1 - Tdap) 2008 Hepatitis B Vaccines (1 of 3 - 19+ 3-dose series) 2008 Pneumococcal Vaccine: Pediat rics (0 to 5 Years) and At-Risk Patients (6 to 49) Years (1 of 2 - PCV) 2008 COVID-19 Vaccine (1 - 2024-2 6 season) 2025 Influenza Vaccine (#1) 2025 Tobacco Screening 04/24/2026 04/24/2025 Zoster Vaccines (1 of 2) 2039 RSV Patients and Pa tients Aged 60 years or older (1 - 1-dose 75+ series) 2064 HIB [...] patient's age to complete this topic Meningococcal Vaccine Aged Out No odalis christine eligible based on patient's age to complete this topic RSV under 20 months Aged Out No longe r eligible based on patient's age to complete this topic Rotavirus Vaccines Aged Out No longer eligible based on patient's age to complete this topic Insurance [facility] C3
[2025-05-06 00:41] VITALS: BP 124/91; PULSE 74; RESP 16; TEMP 36.6; O2SAT 98
--- NOTE | 2025-05-06 01:52 | ED_ITS ---
HPI - General Adult General Chief complaint: General Medical Stated complaint: headache/burning sensation in chest/L leg numb Time Seen by Provider: 05/06/25 01:49 Source: patient Mode of arrival: ambulatory Limitations: no limitations History of Present Illness ED Provider: Sonido YA HPI narrative: The patient is a 35-year-old male presenting to the Emergency Department accompanied by his mother, for evaluation of multiple complaints. 1. This evening he developed a severe migraine, substernal burning chest pain with nausea, and 1 episode of nonbloody vomiting. The patient reports he took Tylenol PM at 20:00 for his migraine, reports he normally takes this for migraines with good effect, however tonight he took the Tylenol p.m. with minimal effect and difficulty sleeping, prompting ED evaluation. Patient reports while experiencing a migraine he also experienced the burning substernal chest sensation with the vomiting. 2. Earlier today he developed an episode of a tightness sensation of the left lower leg with the associated stinging paresthesias, patient reports he has experienced these episodes 3 times in the last 10 days, once on the , once on the , and again today. Patient reports the sensation lasted approximately 2 hours but then spontaneously resolved. 3. The patient reports he experienced an episode of bright red blood per rectum approximately 3 weeks ago when moving his bowels, reports bleeding has since subsided and has not returned. The patient denies associated hematuria or dysuria. 4. The patient reports he has been experiencing recurrent episodes of syncope, one episode occurred 3 months ago and a second 1 month ago. Patient reports he was told he needs medication to make sure his heart beats strong?. Patient reports he recently established a PCP with whom he has his 1st appointment next month to discuss this. Of note chart review reveals patient has syncope episode 1 month ago was associated with marijuana and cocaine use. The patient reports he smokes marijuana daily, reports occasional cocaine use, denies any cocaine use today. 5. The patient reports he has been experiencing increasing shortness of breath over the past few months, reports feeling short of breath when walking short distances from bedroom to bathroom, or upstairs. 6. 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 Related Data Home Medications ?Medication ?Instructions ?Recorded ?Confirmed No Known Home Meds 05/06/25 05/06/25 Allergies Allergy/AdvReac Type Severity Reaction Status Date / Time No Known Allergies Allergy Verified 05/05/25 21:49 Review of Systems 2 Review of Systems: Yes all other systems are reviewed and are negative [facility] Social History Social History Alcohol intake: current Substance Use Type: Crack/Cocaine Physical Exam ED Vital Signs: Vital Signs - 24 hr 05/05/25 21:47 05/06/25 00:41 05/06/25 02:12 Temperature 98 F 98 F 98.1 F Pulse Rate 103 H 74 78 Respiratory Rate 16 16 18 Blood Pressure 134/80 124/91 H 136/95 H Pulse Oximetry 96 98 96 Oxygen Delivery Method Room Air Room Air Room Air 05/06/25 03:56 05/06/25 05:59 05/06/25 06:19 Temperature 98.0 F 98.1 F 98.1 F Pulse Rate 79 76 75 Respiratory Rate 18 18 16 Blood Pressure 123/88 114/83 120/83 Pulse Oximetry 97 97 99 Oxygen Delivery Method Room Air Room Air Room Air 05/06/25 10:34 Temperature 98.1 F Pulse Rate 75 Respiratory Rate 16 Blood Pressure 120/83 Pulse Oximetry 99 Oxygen Delivery Method Room Air BMI result Body Mass Index 25.7 CONSTITUTIONAL: The patient appears non-toxic, well nourished and in no acute distress. Vital signs as documented. HEAD: Atraumatic, normocephalic. EYES: EOMs grossly intact, pupils equal, conjunctiva clear, no exudate. ENT: Nares patent, no discharge. Airway patent, no audible stridor, visible mucosa is pink and moist without noted lesions. NECK: Trachea is midline, no obvious masses or gross abnormalities. CHEST: Symmetric movement, normal appearance. LUNGS: LS present and CTAB, no w/r/r. Non-labored work of breathing. CARDIAC: Regular Rhythm, S1/S2 appreciated, no murmurs, rubs or gallops. ABDOMEN: Abdomen soft and non-tender x4 quadrants, mild tenderness of the epigastrium, negative rebound, no palpable masses or organomegaly. : Deferred. EXTREMITIES: Normal tone, moves all extremities spontaneously without reported pain. No obvious acute injury or deformity noted. NEURO: Alert and oriented x3, CN II-XII appear grossly intact. Cerebellar Functioning grossly intact. No obvious sensory or motor deficits. Speech clear and appropriate. PSYCH: normal affect, appropriate eye contact, fluid speech, with appropriate response to questioning. No reported suicidality or homicidality. SKIN: Warm, dry, color appropriate, normal turgor. No rashes noted. Course Reevaluation(s) Reevaluation #1: 5:07 PM 05/06/2025 (Jake Wheeler MD): The patient was signed out to me this morning pending the results of a CT scan of the abdomen and pelvis which was ordered primarily to evaluate for the question of possible pancreatitis. The patient had presented with multiple different symptoms including some epigastric pain. A lipase has been sent which came back at 191. Clinically the patient is history is not highly suggestive of pancreatitis. When I spoke to the patient he described 1st having a migraine headache (he gets frequent migraines) and then a burning sensation in the middle of his chest. He also complained of intermittent episodes of swelling of the left leg over the last week. He also had [address] The [address] scan did not show any signs of pancreatitis. There was concern about possible right lower lobe consolidation, with a consideration for subsegmental atelectasis versus pneumonia. Because of the question of pneumonia I obtained a two-view chest x-ray which was unremarkable. Because of the patient's complaints of intermittent left leg swelling over the last week I have obtained a DVT ultrasound of the left leg. This was negative. Overall the patient's workup is reassuring. He was feeling better. He was discharged to follow up with his regular doctor. Time: 17:09 Medications Administered Discontinued Medications Generic Name Dose Route Start Last Admin Trade Name Selina PRN Reason Stop Dose Admin Sodium Chloride 1,000 mls @ 999 mls/hr 05/06/25 06:00 05/06/25 06:43 Ns IV 05/06/25 07:00 Infused .Q1H1M DENICE Infusion Iohexol 85 ml 05/06/25 03:46 05/06/25 03:46 Iohexol 350 Mg/Ml 100 Ml Infus..Btl IV 05/06/25 03:47 85 ml ONCE ONE Administration Medical Decision Making Medical Decision Making MDM Narrative: 2:19 AM 05/06/2025 (Fermín YA): The patient is a 35-year-old male presenting to the Emergency Department accompanied by his mother, for evaluation of multiple complaints. 1. This evening he developed a severe migraine, substernal burning chest pain with nausea, and 1 episode of nonbloody vomiting. The patient reports he took Tylenol PM at 20:00 for his migraine, reports he normally takes this for migraines with good effect, however tonight he took the Tylenol p.m. with minimal effect and difficulty sleeping, prompting ED evaluation. Patient reports while experiencing a migraine he also experienced the burning substernal chest sensation with the vomiting. 2. Earlier today he developed an episode of a tightness sensation of the left lower leg with the associated stinging paresthesias, patient reports he has experienced these episodes 3 times in the last 10 days, once on the , once on the , and again today. Patient reports the sensation lasted approximately 2 hours but then spontaneously resolved. 3. The patient reports he experienced an episode of bright red blood per rectum approximately 3 weeks ago when moving his bowels, reports bleeding has since subsided and has not returned. The patient denies associated hematuria or dysuria. 4. The patient reports he has been experiencing recurrent episodes of syncope, one episode occurred 3 months ago and a second 1 month ago. Patient reports he was told he needs medication to make sure his heart beats strong?. Patient reports he recently established a PCP with whom he has his 1st appointment next month to discuss this. Of note chart review reveals patient has syncope episode 1 month ago was associated with marijuana and cocaine use. The patient reports he smokes marijuana daily, reports occasional cocaine use, denies any cocaine use today. 5. The patient reports he has been experiencing increasing shortness of breath over the past few months, reports feeling short of breath when walking short distances from bedroom to bathroom, or upstairs. 6. 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 On exam the patient appears in no acute distress, no hypotension, tachypnea, tachycardia, hypoxia, or fever. The patient's abdominal exam reveals mild discomfort of the epigastrium, negative rebound. No adventitious lung sounds, no focal neurological deficits. The patient's left lower extremity demonstrates no calf tenderness, swelling, erythema, or other acute finding. Distal CSM intact. The patient's laboratory evaluation shows mild leukocytosis of 11.4, no significant anemia, electrolyte abnormality, or TOBIAS. The patient's LFTs are unremarkable. The patient's lipase however is elevated at 191, no old for baseline comparison. The patient's viral swabs are negative for RSV, COVID, and flu. The patient's EKG is nonischemic, troponin pending. Due to the patient's epigastric symptoms with elevated lipase and vomiting, we will obtain CT abdomen and pelvis to evaluate for acute intra-abdominal pathology. Admission/Observation Consideration of admission/observation: Escalation of care including admission/observation considered Lab Data MDM Lab Attestation statement: I reviewed the patient's lab results. 05/05/25 22:07 05/05/25 22:07 Labs: Lab Results 05/05/25 05/06/25 05/06/25 Range/Units 22:07 02:41 06:03 WBC 11.4 H (4.8-10.8) X10*3/uL RBC 4.83 (4.60-5.80) X10*6/uL Hgb 13.8 L (14.0-18.0) g/dl Hct 41.5 L (42.0-52.0) % MCV 85.9 (80.0-98.0) fL MCH 28.6 (27.0-33.0) pg MCHC 33.3 (31.0-36.0) g/dl RDW 14.0 (11.0-16.0) % Plt Count 401 H (160-400) X10*3/uL MPV 10.2 (9.4-12.4) fL Immature Gran % (Auto) 0.3 (0.0-0.4) % Neut % (Auto) 65.1 (45-73) % Lymph % (Auto) 24.8 (20-40) % [place] % (Auto) 8.5 (2-11) % Eos % (Auto) 1.0 (0-4) % Baso % (Auto) 0.3 (0-2) % Lymph # (Auto) 2.8 (1.2-4.9) X10*3/uL [place] # (Auto) 1.0 (0.1-1.2) X10*3/uL Eos # (Auto) 0.1 (0.0-0.4) X10*3/uL Baso # (Auto) 0.0 (0.0-0.2) X10*3/uL Abs Immat Gran (auto) 0.03 (0.00-0.03) X10*3/uL Absolute Neuts (auto) 7.4 (2.0-8.3) x10*3/uL Absolute Nucleated RBC 0.000 (0.0-0.012) X10*3/uL Nucleated RBC % (auto) 0.0 (0.0-0.2) /100WBC Sodium 135 (135-145) mmol/L Potassium 4.2 (3.3-5.1) mmol/L Chloride 100 (96-108) mmol/L Carbon Dioxide 26 (22-29) mmol/L Anion Gap 13 (12-20) BUN 5 L (9-16) mg/dL Creatinine 0.70 (0.5-1.4) mg/dL Estim Creat Clear Calc 136.3 Estimated GFR > 60 Random Glucose 113 (60-115) mg/dL Lactic Acid 0.7 (0.5-2.0) mmol/L Calcium 9.8 (8.4-10.2) mg/dL Magnesium 2.0 (1.6-2.6) mg/dL Total Bilirubin 1.0 (0.0-1.0) mg/dL AST 31 (5-37) U/L ALT 24 (0-40) U/L Alkaline Phosphatase 109 (39-117) U/L Troponin I High Sens < 2.7 (<3.5-35.0) ng/L C-Reactive Protein 2.33 H (< or = 0.50) mg/dL Total Protein 7.9 (6.5-8.0) g/dL Albumin 4.5 (3.5-5.0) g/dL Lipase 191 H (8-78) U/L Urine Color Yellow Urine Appearance Clear Urine pH 6.5 (5.0-9.0) Ur Specific [place] >= 1.030 H (1.005-1.025) Urine Protein Negative (Neg-Trace) mg/dL Urine Glucose (UA) Negative (Negative) mg/dL Urine Ketones Negative (Negative) mg/dL Urine Blood Negative (Negative) Urine Nitrite Negative (Negative) Ur Leukocyte Esterase Negative (Negative) Urine Opiates Screen Not Detected (Not Detect) Ur Buprenorphine Scrn Not Detected (Not Detect) ng/mL Ur Oxycodone Screen Not Detected (Not Detect) ng/mL Urine Methadone Screen Not Detected (Not Detect) ng/mL Urine Fentanyl Screen Not Detected (Not Detect) Ur Barbiturates Screen Not Detected (Not Detect) Ur Phencyclidine Scrn Not Detected (Not Detect) Ur Amphetamines Screen Not Detected (Not Detect) U Benzodiazepines Scrn Not Detected (Not Detect) Urine Cocaine Screen POSITIVE H (Not Detect) U Marijuana (THC) Screen POSITIVE H (Not Detect) Ethyl Alcohol < 10 mg/dL Influenza Type A (PCR) NEGATIVE (Negative) Influenza Type B (PCR) NEGATIVE (Negative) RSV RNA Qual (PCR) NEGATIVE (Negative) SARS-CoV-2 RNA (RT-PCR) NEGATIVE (Negative) Radiology Impression Discussion of test interpretation with radiology: I have reviewed the radiologist's reading. Independent Historian Clinical information obtained from an independent historian. History obtained from or confirmed by: Parent External Record Review External record reviewed: Outpatient record and Prior outpatient labs Discharge Plan Discharge Clinical Impression: Migraine headache, Acute upper abdominal pain, Vomiting Patient Disposition: Home, Self-Care Additional Instructions: ultimately the testing that you had today does not show anything that is obviously dangerous. Please plan on making a follow up appointment with your regular doctor's office soon to discuss all of your symptoms further. Return to the emergency room if you are significantly worse. Prescriptions: No Action No Known Home Meds Referrals: [facility] [Provider Group] Interventions: ED Discharge Assessment Last Done: 05/06/25 10:34 Discharge Date/Time: 05/06/25 10:36 Print Language: Italian
[2025-05-06 02:12] VITALS: BP 136/95; PULSE 78; RESP 18; TEMP 36.7; O2SAT 96
--- NOTE | 2025-05-06 02:42 | PC.NURSE ---
20 g IV placed in right AC
[2025-05-06 03:09] LABS: Troponin-I High Sensitivity < 2.7 ng/L (<3.5-35.0)
[2025-05-06] MEDS: iohexoL 350 MG/ML 100 ML INFUS..BTL 85 ML IV (03:46)
[2025-05-06 03:56] VITALS: BP 123/88; PULSE 79; RESP 18; TEMP 36.7; O2SAT 97
[2025-05-06 05:59] VITALS: BP 114/83; PULSE 76; RESP 18; TEMP 36.7; O2SAT 97
[2025-05-06 06:10] LABS: Appearance Urine Clear; Glucose Urine UA Negative (Negative); PH 6.5 (5.0-9.0); Specific Gravity - Urine >= 1.030 (1.005-1.025)
[2025-05-06 06:19] VITALS: BP 120/83; PULSE 75; RESP 16; TEMP 36.7; O2SAT 99
[2025-05-06 06:22] LABS: Cannabinoid Screen Urine POSITIVE (Not Detect)
--- NOTE | 2025-05-06 08:03 | PHA.MEDREC ---
Pharmacy Consult ? Medication Reconciliation Pharmacy has completed the medication reconciliation.
[2025-05-06 10:34] VITALS: BP 120/83; PULSE 75; RESP 16; TEMP 36.7; O2SAT 99
== END 2025-05-06 10:36 | disposition home or self-care (01) ==
PROVIDERS: Emergency Medicine; Physician Assistant; Emergency Provider Emergency Medicine
DX: G43.909 Migraine, unspecified, not intractable, without status migrainosus (principal); R07.9 Chest pain, unspecified; R11.2 Nausea with vomiting, unspecified
CPT/HCPCS: 36415; 71046; 74177; 80053; 80307; 81003; 83605; 83690; 83735; 84484; 85025; 86140; 87637; 93005; 93971; 96360; 99285; Q9967

== ENCOUNTER → 2025-05-05 21:52 | Outpatient (BNV) | payer MEDICAID, SELFPAY | PROVIDERS: Emergency Provider Emergency Medicine; Visit Provider Internal Medicine Cardiovascular Disease | DX: R00.0 Tachycardia, unspecified (principal) | CPT/HCPCS: 93010 ==

== ENCOUNTER → 2025-05-06 02:10 | Outpatient (BNV) | payer MEDICAID, SELFPAY | PROVIDERS: Emergency Provider Emergency Medicine; Visit Provider Specialist | DX: R10.13 Epigastric pain (principal); R22.42 Localized swelling, mass and lump, left lower limb; R05.9 Cough, unspecified | CPT/HCPCS: 71046; 74177; 93971 ==